=== PATIENT | male | born 1980 | race Two or more races ===

== ENCOUNTER 2021-09-09 22:28 | Emergency (ER) | payer SELFPAY ==
[~2021-09-09] VITALS: Ht 182.9 cm; Wt 88.5 kg
--- NOTE | 2021-09-09 23:00 | NUR ---
BIBRA 878 FOR ETOH. ADMITTED ON DRINKING VODKA. HAS REC'D IVF AT URGENT CARE EARLIER. PATIENT ALERTR AND ORIENTED X4. AMBULATORY WITH NON LABORED BREATHING.
[2021-09-10] MEDS ORDERED: CHLORDIAZEPOXIDE HCL 25 MG CAPSULE ONE (00:27)
[2021-09-10] MEDS ORDERED: CHLORDIAZEPOXIDE HCL 25 MG CAPSULE PO ONE (00:30)
[2021-09-10 00:53] VITALS: BP 131/80
--- NOTE | 2021-09-10 00:53 | NUR ---
Patient discharged to home in stable condition. Written and verbal after care instructions given. Patient verbalizes understanding of instruction.
== END 2021-09-10 00:54 | disposition home or self-care (01) ==
LOC: ER 22:29
DX: F10.129 Alcohol abuse with intoxication, unspecified (principal); Y90.9 Presence of alcohol in blood, level not specified

== ENCOUNTER 2022-04-13 08:44 | Emergency (ER) | payer OTHER ==
[~2022-04-13] VITALS: Ht 188 cm; Wt 85.3 kg
--- NOTE | 2022-04-13 08:45 | NUR ---
bibyousif from street, diaphoretic and tachy, AMS, bg 210, denies drugs. to ER bed 12, hooked to potline monitor, sinus rhythm, changed to hosp gown, warm blanket provided. awaiting MD nava
--- NOTE | 2022-04-13 08:48 | NUR ---
Dr Bautista at bedside
--- NOTE | 2022-04-13 08:59 | NUR ---
URINE COLLECTED AND SENT TO LAB
[2022-04-13] MEDS ORDERED: IV NS 0.9% 1,000 ML IV ONE (09:00)
[2022-04-13 09:15] LABS: EOSINOPHILS % (AUTO) 3.1 % (0.0-6.0); HEMATOCRIT 37 % (39-51); HEMOGLOBIN 12.5 g/dL (13.5-17.5); LYMPHOCYTES # (AUTO) 0.5 K/uL (0.8-4.8); LYMPHOCYTES % (AUTO) 14.8 % (20.0-44.0); MEAN CORPUSCULAR HGB CONC 34 g/dl (31.0-36.0); MEAN CORPUSCULAR VOLUME 90 fL (80-96); MONOCYTES # (AUTO) 0.2 K/uL (0.1-1.30); MONOCYTES % (AUTO) 4.8 % (2.0-12.0); NEUTROPHILS # (AUTO) 2.5 K/uL (1.8-8.9); NEUTROPHILS % (AUTO) 76.3 % (43.0-81.0); PLATELET COUNT (AUTO) 155 K/uL (150-450); RED BLOOD CELL COUNT(AUTO) 4.09 MIL/uL (4.5-6.0); WHITE BLOOD COUNT (AUTO) 3.3 K/uL (4.3-11.0)
[2022-04-13 09:31] LABS: BILIRUBIN,URINE NEGATIVE (NEGATIVE); COLOR,URINE YELLOW (YELLOW); LEUKOCYTE ESTERASE ,URINE NEGATIVE (NEGATIVE); NITRITE, URINE NEGATIVE (NEGATIVE); PROTEIN,URINE 100 mg/dl (NEGATIVE); UGLUCOSE NEGATIVE (NEGATIVE); UROBILINOGEN,URINE 0.2 EU/dL (0.2)
[2022-04-13 11:02] LABS: CALCIUM, SERUM 8.2 mg/dL (8.5-10.1); CREATININE 1.2 mg/dL (0.6-1.3); POTASSIUM 3.6 mmol/L (3.5-5.1)
[2022-04-13 11:09] LABS: ALBUMIN 3.4 g/dL (3.4-5.0); BILIRUBIN,DIRECT 0.2 mg/dL (0.0-0.2); BILIRUBIN,TOTAL 0.5 mg/dL (0.2-1.0); TOTAL PROTEIN, SERUM 7.5 g/dL (6.4-8.2)
[2022-04-13 11:16] LABS: BACTERIA,URINE Moderate /HPF (None Seen); WBC,URINE 0-2 /HPF (0-3)
[2022-04-13 11:17] LABS: SQUAMOUS EPITHELIAL CELL,UR 0-2 /HPF (None Seen)
--- NOTE | 2022-04-13 11:25 | NUR ---
IV removed. Catheter intact and site benign. Pressure and 4x4 applied to site. No bleeding noted.
[2022-04-13 11:29] VITALS: BP 156/86
--- NOTE | 2022-04-13 11:29 | NUR ---
Pt states "feel so much better. VSS Patient discharged to home in stable condition. Written and verbal after care instructions given. Patient verbalizes understanding of instruction.
== END 2022-04-13 11:32 | disposition home or self-care (01) ==
LOC: ER 08:47
DX: R41.82 Altered mental status, unspecified (principal); F10.10 Alcohol abuse, uncomplicated; F14.10 Cocaine abuse, uncomplicated; Y90.0 Blood alcohol level of less than 20 mg/100 ml
CPT/HCPCS: 99284; 93005; 85025; 80048; 87086; 80076; 81001; 36415; 80320; 80307; J7030; G0480

== ENCOUNTER 2022-11-06 20:00 | Emergency (ER) | payer OTHER ==
[~2022-11-06] VITALS: Ht 188 cm; Wt 86.2 kg
--- NOTE | 2022-11-06 21:00 | NUR ---
BIBRA. TO ER BED 19. AAOX4. NOT IN RESP DISTRESS. AMBULATORY ON STEADY GAIT. BROUGHT IN FOR ALCOHOL USE. PT JUST WANT TO GO HOME.
--- NOTE | 2022-11-06 21:06 | NUR ---
Patient discharged to home in stable condition. Written and verbal after care instructions given. Patient verbalizes understanding of instruction. Pt ambulatory with a steady gait. Pt took an Uber back to home.
[2022-11-06 21:10] VITALS: BP 137/78
== END 2022-11-06 21:06 | disposition home or self-care (01) ==
LOC: ER 20:06
DX: F10.129 Alcohol abuse with intoxication, unspecified (principal); J45.909 Unspecified asthma, uncomplicated; Y90.9 Presence of alcohol in blood, level not specified

== ENCOUNTER 2024-04-27 17:46 | Emergency (ER) | payer SELFPAY ==
[~2024-04-27] VITALS: Ht 175.3 cm; Wt 81.6 kg
[2024-04-27 20:11] VITALS: TEMP 98.8
--- NOTE | 2024-04-27 21:55 | NUR ---
PT IS AWAKE, ALERT AND OX4. VERBALLY RESPONSIVE, AMBULATORY WITH STEADY GAITS, PO INTAKE TOLERATED WELL. REPORTED FEELING WELL AND WILLING TO LEAVE. MADE AWARE. OK FOR D/C.
--- NOTE | 2024-04-27 22:00 | NUR ---
Patient discharged to home in stable condition. Written and verbal after care instructions given. Patient verbalizes understanding of instruction.
[2024-04-27 22:59] VITALS: BP 144/89; O2SAT 98
== END 2024-04-27 22:00 | disposition home or self-care (01) ==
LOC: ER 17:56
DX: F10.129 Alcohol abuse with intoxication, unspecified (principal); J45.909 Unspecified asthma, uncomplicated; F19.10 Other psychoactive substance abuse, uncomplicated